=== PATIENT | female | born 1970 | race Hispanic/Latino ===

== ENCOUNTER 2017-11-12 10:46 | Emergency (ER) | payer BC ==
[2017-11-12] MEDS ORDERED: EPINEPHrine 1 MG/ML AMP ONE (11:01)
[2017-11-12] MEDS ORDERED: Famotidine/PF 20 mg/2ml Vial ONE (11:17)
[2017-11-12] MEDS ORDERED: diphenhydrAMINE 50 MG/ML VIAL ONE (11:17)
[2017-11-12] MEDS ORDERED: methylPREDNISolone Sod Succ/PF 125 MG/2 ML VIAL ONE (11:18)
[2017-11-12] MEDS ORDERED: Sodium Chloride 0.9% 500 ML ONE (11:18)
[2017-11-12] MEDS ORDERED: Ondansetron HCl/PF 4 MG/2 ML Vial ONE (11:35)
[2017-11-12 12:15] LABS: #Basophils 0.1 thou/uL (0.0-0.2); #Eosinphils 0.3 thou/uL (0.0-0.7); #Lymphocytes 6.2 thou/uL (1.20-3.40); #Monocytes 1.7 thou/uL (0.11-0.59); #Neutrophils 8.3 thou/uL (1.40-6.50); %Basophils 0.6 % (0.0-1.0); %Lymphocytes 37.1 % (21.0-51.0); %Monocytes 10.1 % (0.0-10.0); %Neutrophils 50.1 % (42.0-75.0); Hemoglobin 13.9 g/dL (12.0-16.0); Mean Corpuscular HGB CONC 30.6 g/dL (32.0-36.0); Mean Corpuscular Volume 88.3 fL (78.0-98.0); Mean Platelet Volume 8.3 fL (7.4-10.4); Platelet Count 152 thou/uL (130-400); RBC Distribution Width 12.6 % (11.5-14.5); Red Blood Cell (RBC) Count 5.16 mill/uL (4.20-5.40); White Blood Cell (WBC) Count 16.6 thou/uL (4.8-10.8)
[2017-11-12 12:28] LABS: ALT (SGPT) 35 U/L (8-55); AST (SGOT) 28 U/L (5-34); Alkaline Phosphatase 85 U/L (40-150); Anion Gap 18 mmol/L (10-20); BUN (Urea Nitrogen) 15 mg/dL (7.0-18.7); Bilirubin, Total 0.8 mg/dL (0.2-1.2); Calc. Creatinine Clearance 0 mL/min (70-130); Calcium 8.5 mg/dL (7.8-10.44); Carbon Dioxide 17 mmol/L (22-29); Chloride 108 mmol/L (98-107); Estimated GFR-MDRD 67; Globulin 3.4 g/dL (2.4-3.5); Glucose 144 mg/dL (70-105); Lipase 12 U/L (8-78); Potassium 3.4 mmol/L (3.5-5.1); Protein, Total 7.4 g/dL (6.0-8.3); Sodium 140 mmol/L (136-145)
[2017-11-12 13:39] LABS: Bilirubin Negative (Negative); Blood, Urine Large (Negative); Glucose, Urine (Dipstick) 100 mg/dL (Negative); Leukocyte Negative (Negative); Nitrite Negative (Negative); Protein, Urine (Dipstick) 100 mg/dL (Neg-Trace); pH, Urine 5.5 (5.0-9.0)
[2017-11-12 13:49] LABS: Clarity SL HAZY (Clear)
[2017-11-12 13:51] LABS: Specific Gravity, Urine 1.024 (1.005-1.030)
[2017-11-12 13:52] LABS: Bacteria/HPF 1+ HPF (None Seen); Squamous Epithelial 0-3 HPF (0-3); WBC/HPF 0-3 HPF (0-3)
== END 2017-11-12 15:45 | disposition home or self-care (01) ==
LOC: NAV ERS 10:46
DX: T78.40XA Allergy, unspecified, initial encounter (principal); R11.2 Nausea with vomiting, unspecified; R19.7 Diarrhea, unspecified; I10 Essential (primary) hypertension
CPT/HCPCS: 80053; 81003; 81015; 83690; 85025; 96361; 96372; 96374; 96375; J0171; J1200; J2405; J2930; J7050; S0028